=== PATIENT | female | born 1990 | race African-American/Black ===

== ENCOUNTER 2016-11-02 15:10 | Emergency (ER) | payer OTHER ==
[2016-11-02] MEDS ORDERED: HYDROcodone/Acetaminophen 10/325 mg Tablet ONE (15:21)
--- NOTE | 2016-11-02 15:45 | RAD ---
RIGHT ANKLE THREE VIEWS: History: Patient turned ankle while playing basketball. Pain. Comparison: None. FINDINGS: Lateral soft tissue swelling. Mild widening of the lateral joint space. No fracture. IMPRESSION: 1. Lateral soft tissue swelling with possible lateral ligamentous injury. 2. No fracture. POS: [facility]
== END 2016-11-02 16:01 | disposition home or self-care (01) ==
LOC: NAV ERS 15:10
DX: S93.401A Sprain of unspecified ligament of right ankle, initial encounter (principal); F31.9 Bipolar disorder, unspecified; Z79.899 Other long term (current) drug therapy; W01.0XXA Fall on same level from slipping, tripping and stumbling without subsequent striking against object, initial encounter